=== PATIENT | female | born 1990 | race Caucasian/White ===

== ENCOUNTER 2018-10-06 17:16 | Emergency (ER) | payer OTHER ==
[~2018-10-06] VITALS: Ht 154.9 cm; Wt 86.4 kg
[~2018-10-06 17:16] MED LIST: CHILD'S MULTI1 CTB PO; MACROBID 1100 MG/CAP PO; MOTRIN 600600 MG/TAB PO; PHENERGAN 25 TA25 MG PO; PREDNISONE20 MG PO; VENTOLIN0.09 MG IH
[2018-10-06 17:20] VITALS: BP 130/82; TEMP 97.9
[2018-10-06 20:20] VITALS: PULSE 71
== END 2018-10-07 00:58 | disposition home or self-care (01) ==
LOC: COL.ER 17:16
DX: R51 Headache (principal); J45.909 Unspecified asthma, uncomplicated; Z87.891 Personal history of nicotine dependence
CPT/HCPCS: J1200; J1885; J2765; J7030

== ENCOUNTER 2019-09-28 21:55 | Inpatient (IN) | payer OTHER ==
[~2019-09-28] VITALS: Ht 154.9 cm; Wt 87.3 kg
[2019-09-28] MEDS ORDERED: SLOW FE142 MG PO (22:20)
[2019-09-28 22:30] VITALS: BP 124/62; PULSE 76; TEMP 97.9
[2019-09-28 23:00] VITALS: BP 123/68; PULSE 83
[2019-09-28 23:15] VITALS: BP 121/70; PULSE 81
[2019-09-28 23:30] VITALS: BP 126/62; PULSE 77
[2019-09-28 23:45] VITALS: BP 116/59; PULSE 88
[2019-09-28 23:50] LABS: BASO % 0.2 % (0.0-2.0); EOS % 0.2 % (0-4.0); GRAN # 8.8 (1.4-6.5); GRAN % 78.7 % (42.2-75.2); HEMOGLOBIN 12.3 g/dl (12.5-16.0); LYMPH # 1.5 (1.2-3.4); LYMPH % 13.6 % (20.0-51.0); MEAN CELL VOLUME 87 fl (80.0-100.0); MEAN CORPUSCULAR HEMOGLOBIN 29 pg (27.0-31.0); MEAN CORPUSCULAR HGB CONC 33 g/dl (33.0-37.0); MEAN PLATELET VOLUME 12.4 fl (7.4-10.4); MONO # 0.7 (0.1-0.6); MONO % 5.8 % (1.7-9.3); PLATELET COUNT 135 K/mm3 (130-400); RED BLOOD COUNT 4.22 M/mm3 (4.10-5.30); REDCELL DISTRIBUTION WIDTH-CV 13.5 % (11.5-14.5)
[2019-09-28 23:52] LABS: HEMATOCRIT 36.9 % (37.0-47.0)
[2019-09-29] VITALS (50 sets, daily range): BP systolic 90–138; BP diastolic 46–78; PULSE 66–104; TEMP 98.3–99.3
--- NOTE | 2019-09-29 | NUR ---
2200- Patient ambulatory to LR5 with boyfriend, Eliel. Patient oriented to room. Patient into restroom to change into clean gown. 2202- EFM and TOCO on and tracing. Patient presents to L+D with complaints of contractions every 3-5 minutes for the last 90 minutes. Patient was seen at [facility] today and had her membranes stripped. Cervix unreachable by this RN. rate clerk, Jorge at bedside. SVE 5/80/-3 and very posterior. Patient did not tolerate SVE very well. Assessment completed. VSS. Plan of care discussed. 2230- See Physician Notification. 2250- See Anesthesia Notification. 2300- IV started. Labs drawn and sent. LR infusing per protocol. 2315- JENNIFER Rosales at bedside. Patient repositioned to sitting upright for epidural placement. EFM and TOCO on and tracing intermittently due to maternal positioning. 2324- Single Shot. See Anesthesia Record. 0000- Miranda Catheter inserted. 0030- SVE 5/80/-2 by this RN. Patient is comfortable with epidural. Plan of care discussed with patient and FOB. Encouraged sleep.
--- NOTE | 2019-09-29 06:00 | NUR ---
0315- SVE /-2. 0320- See Physician Notification. 0600- SVE /-2.
[2019-09-29] MEDS ORDERED: MOTRIN 800800 MG/TAB PO (10:04)
--- NOTE | 2019-09-29 10:21 | NUR ---
0930 - RN at bedside. Pt reporting consistent pressure, increasing with contractions. SVE AL/+1. Dr. Gilbert notified. See physician notification. 0933 - Dr. Gilbert at bedside. Pt complete per physician. Pt and room prepped for delivery, Stephania Brewer RN of nursery at bedside. Miranda removed. 0939 - Pt pushing with Dr. Gilbert. 0943 - Viable female delivered spontaneously. Infant placed on mother's abdomen where dried and stimulated. Care of transferred to Stephania Brewer RN of nursery. Apgars 6/9/9. 0946 - Placenta delivered spontaneously by Dr. Gilbert. Manual removal of placental membranes by Dr. Gilbert. Perineum intact per provider with left periurethral repair. See physician delivery notes. pitocin started per protocol. Pt repositioned in bed for comfort, ice pack placed on perineum.
--- NOTE | 2019-09-29 12:03 | NUR ---
Pt up to side of bed, epidural catheter removed without difficulty. Pt ambulated under own power to bathroom. Pt voided, RN assisted with pericare. Clean panties and pad placed, new gown provided. Pt ambulated without assistance back to bed. Pt denies needs at this time.
[2019-09-30] VITALS: BP 104/57; PULSE 77; TEMP 98.4
[2019-09-30 05:30] VITALS: BP 126/59; PULSE 74; TEMP 98.2
[2019-09-30 08:04] VITALS: BP 110/65; PULSE 74; TEMP 97.6
== END 2019-09-30 12:30 | disposition home or self-care (01) | DRG 807 ==
LOC: LDRO 21:55 → LDR 22:33 → OB 09-29 12:11
PROVIDERS: ADMIT Obstetrics & Gynecology
PROC: 10E0XZZ Delivery of Products of Conception, External Approach (ICD-10-PCS; principal; 2019-09-29)
PROC: 10D17Z9 Manual Extraction of Products of Conception, Retained, Via Natural or Artificial Opening (ICD-10-PCS; 2019-09-29)
PROC: 0UQMXZZ Repair Vulva, External Approach (ICD-10-PCS; 2019-09-29)
PROC: 10907ZC Drainage of Amniotic Fluid, Therapeutic from Products of Conception, Via Natural or Artificial Opening (ICD-10-PCS; 2019-09-29)
DX: O99.02 Anemia complicating childbirth (principal); Z37.0 Single live birth; O99.52 Diseases of the respiratory system complicating childbirth; O99.214 Obesity complicating childbirth; J45.909 Unspecified asthma, uncomplicated; O71.82 Other specified trauma to perineum and vulva; O76 Abnormality in fetal heart rate and rhythm complicating labor and delivery; E66.9 Obesity, unspecified; Z3A.40 40 weeks gestation of pregnancy; Z86.14 Personal history of Methicillin resistant Staphylococcus aureus infection
CPT/HCPCS: J0690; J1200; J2590; J2795; J7120

== ENCOUNTER 2019-10-05 15:53 | Observation (INO) | payer OTHER ==
[~2019-10-05] VITALS: Ht 154.9 cm; Wt 79.9 kg
[2019-10-05] VITALS (94 sets, daily range): BP systolic 128–146; BP diastolic 86–88; PULSE 36–46; TEMP 98.2; O2SAT 79–100
[~2019-10-05 15:53] MED LIST changes: +MOTRIN 800800 MG/TAB PO; +SLOW FE142 MG PO
[2019-10-05 16:36] LABS: BASO % 0.4 % (0.0-2.0); EOS # 0.1 (0.0-0.7); EOS % 1.4 % (0-4.0); GRAN # 5.4 (1.4-6.5); GRAN % 64.8 % (42.2-75.2); HEMOGLOBIN 11.8 g/dl (12.5-16.0); LYMPH # 2.1 (1.2-3.4); LYMPH % 25.1 % (20.0-51.0); MEAN CELL VOLUME 90 fl (80.0-100.0); MEAN CORPUSCULAR HEMOGLOBIN 29 pg (27.0-31.0); MEAN CORPUSCULAR HGB CONC 32 g/dl (33.0-37.0); MEAN PLATELET VOLUME 10.3 fl (7.4-10.4); MONO # 0.5 (0.1-0.6); MONO % 6.1 % (1.7-9.3); PLATELET COUNT 214 K/mm3 (130-400); RED BLOOD COUNT 4.08 M/mm3 (4.10-5.30); REDCELL DISTRIBUTION WIDTH-CV 13.2 % (11.5-14.5)
[2019-10-05 16:39] LABS: HEMATOCRIT 36.6 % (37.0-47.0)
[2019-10-05 16:50] LABS: ALANINE AMINOTRANSFERASE 41 U/L (9-52); ALBUMIN 3.9 gm/dL (3.5-5.0); ALKALINE PHOSPHATASE 164 U/L (50-136); ANION GAP 9 mmol/L (7-16); AST,SGOT 32 U/L (15-37); BILIRUBIN,TOTAL 0.2 mg/dL (0.0-1.0); BLOOD UREA NITROGEN 16 mg/dL (7-17); CALCIUM 9.1 mg/dL (8.4-10.2); CARBON DIOXIDE 25 mmol/L (22-30); CHLORIDE 108 mmol/L (98-107); CREATINE KINASE 66 U/L (30-135); GLUCOSE 75 mg/dL (74-106); MAGNESIUM 2.2 mg/dL (1.6-2.3); POTASSIUM 3.7 mmol/L (3.4-5.0); SODIUM 142 mmol/L (137-145); TOTAL PROTEIN 7.1 gm/dL (6.4-8.2)
[2019-10-05 16:58] LABS: INR 0.9 (0.8-3.0); PROTHROMBIN TIME 10.3 SECONDS (9.7-12.8)
[2019-10-05 17:01] LABS: PARTIAL THROMBOPLASTIN TIME 28.4 SECONDS (26.0-37.0)
[2019-10-05 17:03] LABS: TROPONIN-I < 0.012 ng/mL (0.000-0.035)
[2019-10-05 18:06] LABS: COLLECTION METHOD CLEAN CATCH
[2019-10-05 18:16] LABS: PH 6 (5-8); SQUAMOUS EPITHELIAL 0-2 /hpf; URINE APPEARANCE Clear; URINE BACTERIA None Seen /hpf; URINE BILIRUBIN Negative (NEGATIVE); URINE BLOOD 3+ (NEGATIVE); URINE COLOR Yellow; URINE GLUCOSE Negative (NEGATIVE); URINE KETONE Negative (NEGATIVE); URINE LEUKOCYTE ESTERASE 2+ (NEGATIVE); URINE NITRATE Negative (NEGATIVE); URINE PROTEIN(semi-quant) Negative (NEGATIVE); URINE UROBILINOGEN Negative (NEGATIVE)
[2019-10-06] VITALS (346 sets, daily range): BP systolic 131–148; BP diastolic 77–82; PULSE 38–47; TEMP 97.2–98; O2SAT 95–100
[2019-10-06 06:59] LABS: HEMOGLOBIN 10.7 g/dl (12.5-16.0); MEAN CELL VOLUME 91 fl (80.0-100.0); MEAN CORPUSCULAR HEMOGLOBIN 29 pg (27.0-31.0); MEAN CORPUSCULAR HGB CONC 32 g/dl (33.0-37.0); MEAN PLATELET VOLUME 10.7 fl (7.4-10.4); PLATELET COUNT 192 K/mm3 (130-400); RED BLOOD COUNT 3.68 M/mm3 (4.10-5.30); REDCELL DISTRIBUTION WIDTH-CV 13.3 % (11.5-14.5)
[2019-10-06 07:01] LABS: HEMATOCRIT 33.3 % (37.0-47.0)
[2019-10-06 07:09] LABS: ALANINE AMINOTRANSFERASE 33 U/L (9-52); ALBUMIN 3.2 gm/dL (3.5-5.0); ALKALINE PHOSPHATASE 138 U/L (50-136); ANION GAP 9 mmol/L (7-16); AST,SGOT 24 U/L (15-37); BILIRUBIN,TOTAL 0.2 mg/dL (0.0-1.0); BLOOD UREA NITROGEN 15 mg/dL (7-17); CALCIUM 8.5 mg/dL (8.4-10.2); CARBON DIOXIDE 22 mmol/L (22-30); CHLORIDE 112 mmol/L (98-107); CREATININE, serum 0.65 (0.52-1.25); GLUCOSE 78 mg/dL (74-106); POTASSIUM 4.1 mmol/L (3.4-5.0); SODIUM 143 mmol/L (137-145); TOTAL PROTEIN 6.1 gm/dL (6.4-8.2)
[2019-10-06 07:20] LABS: TROPONIN-I 6 HR POST INITIAL < 0.012 ng/mL (0.000-0.034)
[2019-10-06 07:52] LABS: BAND 7 % (0-10); NEUTROPHILS 64 % (42.0-75.2)
[2019-10-06 07:54] LABS: NUCLEATED RED BLOOD CELL 1 (0-6)
[2019-10-06 08:05] LABS: LYMPHOCYTE 18 % (20.0-51.0)
--- NOTE | 2019-10-06 19:11 | NUR ---
Bedside report given to Rob GUNN.
--- NOTE | 2019-10-06 20:00 | NUR ---
PATIENT AMBULATES WITH STAFF AND SHOWERS, BED LINENS CHANGE, PATIENT DENIES DISCOMFORT
[2019-10-07 05:48] LABS: BASO # 0.1 (0.0-0.2); BASO % 0.6 % (0.0-2.0); EOS # 0.2 (0.0-0.7); EOS % 1.8 % (0-4.0); GRAN # 5.5 (1.4-6.5); GRAN % 62.7 % (42.2-75.2); HEMOGLOBIN 11.7 g/dl (12.5-16.0); LYMPH # 2.2 (1.2-3.4); LYMPH % 25.4 % (20.0-51.0); MEAN CELL VOLUME 89 fl (80.0-100.0); MEAN CORPUSCULAR HEMOGLOBIN 29 pg (27.0-31.0); MEAN CORPUSCULAR HGB CONC 33 g/dl (33.0-37.0); MEAN PLATELET VOLUME 10.3 fl (7.4-10.4); MONO # 0.6 (0.1-0.6); MONO % 6.9 % (1.7-9.3); PLATELET COUNT 200 K/mm3 (130-400); RED BLOOD COUNT 4.05 M/mm3 (4.10-5.30); REDCELL DISTRIBUTION WIDTH-CV 13.2 % (11.5-14.5)
[2019-10-07 05:58] LABS: CALCIUM 8.8 mg/dL (8.4-10.2); CREATININE, serum 0.69 (0.52-1.25); POTASSIUM 4.1 mmol/L (3.4-5.0)
--- NOTE | 2019-10-07 07:10 | NUR ---
Report recieved from Rob GUNN. Patient and S/O sleeping at this time. HR 34-38 bpm, SR. Offers no S/S discomft or pain at this time.
[2019-10-07 08:00] VITALS: BP 150/76; PULSE 40; TEMP 97.2
[2019-10-07] MEDS ORDERED: MOTRIN 600600 MG/TAB PO (12:11)
--- NOTE | 2019-10-07 12:40 | NUR ---
Discharge instructions, medications and teaching done at this time. Patient and S/O voice understanding. Deny questions or concerns at this time. 0225 Discharge to POV with S/O driving.
== END 2019-10-07 12:45 | disposition home or self-care (01) ==
LOC: COL.ER 15:53 → ICU 19:03
PROVIDERS: Emergency Medicine; Nurse Practitioner Family; ADMIT Internal Medicine
DX: R00.1 Bradycardia, unspecified (principal); R07.89 Other chest pain; J45.909 Unspecified asthma, uncomplicated; I35.1 Nonrheumatic aortic (valve) insufficiency; Z88.1 Allergy status to other antibiotic agents; Z88.0 Allergy status to penicillin; Z91.040 Latex allergy status; Z86.14 Personal history of Methicillin resistant Staphylococcus aureus infection; D64.9 Anemia, unspecified; E66.9 Obesity, unspecified; Z87.891 Personal history of nicotine dependence
CPT/HCPCS: 99239; G0378; J7030; Q9967

== ENCOUNTER 2022-03-11 11:33 | Emergency (ER) | payer OTHER ==
[~2022-03-11] VITALS: Ht 154.9 cm; Wt 80.5 kg
[2022-03-11 12:40] LABS: BASO % 0.3 % (0.0-2.0); EOS % 0.5 % (0.0-4.0); GRAN # 3.6 K/mm3 (1.4-6.5); GRAN % 58.5 % (42.2-75.2); HEMATOCRIT 40.6 % (37.0-47.0); HEMOGLOBIN 13.7 g/dl (12.5-16.0); LYMPH # 2.1 K/mm3 (1.2-3.4); LYMPH % 34.4 % (20.0-51.0); MEAN CELL VOLUME 88 fl (80.0-100.0); MEAN CORPUSCULAR HEMOGLOBIN 30 pg (27-31); MEAN CORPUSCULAR HGB CONC 34 g/dl (33.0-37.0); MEAN PLATELET VOLUME 10.9 fl (7.4-10.4); MONO # 0.4 K/mm3 (0.1-0.6); PLATELET COUNT 194 K/mm3 (130-400); RED BLOOD COUNT 4.61 M/mm3 (4.10-5.30); REDCELL DISTRIBUTION WIDTH-CV 11.8 % (11.5-14.5)
[2022-03-11 12:55] LABS: ALANINE AMINOTRANSFERASE 13 U/L (0-55); ALBUMIN 4.1 gm/dL (3.5-5.0); ALKALINE PHOSPHATASE 68 U/L (40-150); ANION GAP 11 mmol/L (7-16); AST,SGOT 17 U/L (5-34); BILIRUBIN,TOTAL 0.4 mg/dL (0.2-1.2); BLOOD UREA NITROGEN 9 mg/dL (7-19); CALCIUM 9.4 mg/dL (8.4-10.2); CARBON DIOXIDE 22 mmol/L (22-29); CHLORIDE 108 mmol/L (98-107); GLUCOSE 82 mg/dL (70-99); SODIUM 141 mmol/L (136-145); TOTAL PROTEIN 7.5 gm/dL (6.2-8.1)
[2022-03-11 13:04] LABS: TROPONIN-I < 0.010 ng/mL (0.00-0.033)
[2022-03-11 15:34] VITALS: BP 132/73; PULSE 73
== END 2022-03-11 15:40 | disposition home or self-care (01) ==
LOC: COL.ER 11:33
PROVIDERS: Personal Emergency Response Attendant
DX: R07.89 Other chest pain (principal); Z91.040 Latex allergy status

== ENCOUNTER 2022-04-19 13:26 | Emergency (ER) | payer OTHER ==
[~2022-04-19] VITALS: Ht 154.9 cm; Wt 77.7 kg
[2022-04-19 13:39] VITALS: PULSE 76
[2022-04-19 14:29] VITALS: BP 121/71
== END 2022-04-19 14:29 | disposition home or self-care (01) ==
LOC: COL.ER 13:26
DX: S61.012A Laceration without foreign body of left thumb without damage to nail, initial encounter (principal); Z91.040 Latex allergy status; Z23 Encounter for immunization; W23.1XXA Caught, crushed, jammed, or pinched between stationary objects, initial encounter